=== PATIENT | male | born 1955 | race Caucasian/White ===

== ENCOUNTER 2017-06-12 16:41 | Emergency (ER) | payer OTHER ==
[~2017-06-12] VITALS: Ht 175.3 cm; Wt 90.0 kg
[2017-06-12 17:37] LABS: BLOOD UREA NITROGEN 18 mg/dL (7-18)
[2017-06-12 18:02] VITALS: BP 120/72
[2017-06-12] MEDS ORDERED: POTASSIUM CHLORIDE 20 MEQ TAB.ER.PRT ONE (18:29)
[2017-06-12] MEDS ORDERED: POTASSIUM CHLORIDE 10% 40 MEQ/30 ML UDC PO ONE (18:30)
[2017-06-12] MEDS ORDERED: PLEASE ENTER ALLERGIES MC SCH ×2 (19:00)
== END 2017-06-12 18:47 | disposition home or self-care (01) ==
LOC: ED 18:41
DX: F10.229 Alcohol dependence with intoxication, unspecified (principal)
CPT/HCPCS: 36415; 80048; 80307; 82040; 85025; 99284

== ENCOUNTER 2017-06-26 11:43 | Emergency (ER) | payer OTHER ==
[~2017-06-26] VITALS: Ht 182.9 cm; Wt 110.0 kg
[2017-06-26 16:55] VITALS: BP 150/81
== END 2017-06-26 16:58 | disposition home or self-care (01) ==
LOC: ED 11:57
DX: S00.81XA Abrasion of other part of head, initial encounter (principal); F10.220 Alcohol dependence with intoxication, uncomplicated; W19.XXXA Unspecified fall, initial encounter; Y93.89 Activity, other specified; Y92.89 Other specified places as the place of occurrence of the external cause; Y99.9 Unspecified external cause status
CPT/HCPCS: 70450; 99284

== ENCOUNTER 2020-01-21 03:06 | Emergency (ER) | payer OTHER ==
[~2020-01-21] VITALS: Ht 193 cm; Wt 100.0 kg
--- NOTE | 2020-01-21 03:28 | NUR ---
THIS IS A 64Y M BIB EMS FROM [facility], PT STS HE HAS HYPOTHERMIA AGAIN. PT ORAL TEMP 97.3. NADN. PT PROVIDED WITH BLANKETS RESTING ON GURNEY AT THIS TIME
[2020-01-21 04:45] VITALS: BP 161/85
--- NOTE | 2020-01-21 05:03 | NUR ---
PT RESTING ON GURNEY EYES CLOSED NADN
--- NOTE | 2020-01-21 05:27 | NUR ---
PT CONTINUES TO REST ON [facility]I HELLER
--- NOTE | 2020-01-21 05:39 | NUR ---
PT ANGRY WITH STAFF ABOUT DISCHARGE AT THIS TIME, PT CONTINUES TO HAVE NO MEDICAL COMPLAINT ASIDE FROM BEING COLD. PT CALLS RN AN "ANGRY BITCH." AND REFUSES ASSISTANCE WITH GETTING DRESSED AND INTO WHEELCHAIR. PT DEMANDING RN "SHOW HIM RESPECT A MAN AN CITIZEN OF THIS COUNTRY."
== END 2020-01-21 06:00 | disposition home or self-care (01) ==
LOC: ED 05:30
DX: J00 Acute nasopharyngitis [common cold] (principal); F17.200 Nicotine dependence, unspecified, uncomplicated; Z72.9 Problem related to lifestyle, unspecified
CPT/HCPCS: 99283